=== PATIENT | male | born 1965 | race Caucasian/White ===

== ENCOUNTER → 2017-09-18 | Outpatient (CLI) | payer OTHER ==
[2017-09-18 09:34] LABS: BASOPHILS # (AUTO) 0.03 x10^3/uL (0-0.1); BASOPHILS % (AUTO) 1 % (0-1); EOSINOPHILS % (AUTO) 1 % (1-7); LYMPHOCYTES % (AUTO) 28 % (22-44); MD NO; MEAN CORPUSCULAR HEMOGLOBIN 30.7 pg (27.5-34.5); MEAN CORPUSCULAR HGB CONC 34.8 g/dL (33.2-36.2); MEAN CORPUSCULAR VOLUME 88.1 fL (81-97); MEAN PLATELET VOLUME 9.4 fL (7.4-10.4); MONOCYTES # (AUTO) 0.28 x10^3/uL (0.2-0.8); MONOCYTES % (AUTO) 4 % (2-9); NEUTROPHILS # (AUTO) 4.55 x10^3/uL (1.8-6.8); NEUTROPHILS % (AUTO) 66 % (42-75); PLATELET COUNT 226 x10^3/uL (130-400); RED CELL DISTRIBUTION WIDTH 12.7 % (9.4-14.8)
[2017-09-18 09:37] LABS: MICROSCOPIC NOT IND
[2017-09-18 09:38] LABS: CULTURE INDICATED? NO
[2017-09-18 09:47] LABS: ALBUMIN 4.3 g/dL (3.4-5.0); ANION GAP 6 mmol/L (5-15); CALCIUM 8.9 mg/dL (8.5-10.1); CHLORIDE 109 mmol/L (98-107)
[2017-09-18 09:55] LABS: ALANINE AMINOTRANSFERASE 77 U/L (12-78); ALKALINE PHOSPHATASE 77 U/L (45-117); BILIRUBIN,TOTAL 0.5 mg/dL (0.2-1.0); C-REACTIVE PROTEIN, QUANT 0.07 mg/dL (0.02-0.49); CHOL/HDL RATIO 4.3; CHOLESTEROL, TOTAL 238 mg/dL (140-239); HDL CHOL % 24 % (26-37); HDL CHOLESTEROL (DIRECT) 56 mg/dL (40-60); LDL CHOLESTEROL,CALCULATED 140 mg/dL (54-169); LDL/HDL RATIO 2.5 (0.5-3.0); PSA SCREEN 1.41 ng/mL (0.00-4.00); T4 (THYROXINE) 8.5 mcg/dL (4.5-12.1); TOTAL PROTEIN 7.9 g/dL (6.4-8.2); TRIGLYCERIDES 210 mg/dL (50-200); VLDL CHOLESTEROL 42 mg/dL (0-25)
== END | disposition home or self-care (01) ==
LOC: RAD 09:13
PROVIDERS: ATTEND Nurse Practitioner Primary Care
DX: N50.3 Cyst of epididymis (principal); N50.9 Disorder of male genital organs, unspecified; N50.811 Right testicular pain; M54.31 Sciatica, right side; C43.9 Malignant melanoma of skin, unspecified
CPT/HCPCS: 36415; 76870; 80053; 80061; 81003; 82306; 83036; 84436; 84443; 84480; 84550; 85025; 86140; 86225; 86235; 86376; 86430; G0103